=== PATIENT | male | born 1965 | race African-American/Black ===

== ENCOUNTER 2020-05-30 03:14 | Emergency (ER) | payer SELFPAY ==
[~2020-05-30] VITALS: Ht 167.6 cm; Wt 83.0 kg
[2020-05-30 05:00] VITALS: BP 136/79
[2020-05-30] MEDS ORDERED: ONDANSETRON 4MG ODT PO ONE (05:15)
[2020-05-30 05:20] LABS: BASOPHILS % 0.6 % (0.0-2.0); CHLORIDE 100 mEq/L (98-107); EOSINOPHILS % 0.1 % (0.0-5.0); HEMATOCRIT. 48.6 % (42.0-52.0); HEMOGLOBIN. 15.5 g/dL (14.0-18.0); LYMPHOCYTES % 25.7 % (20.0-50.0); MEAN CORPUSCULAR HEMOGLOBIN 25.5 pg (28.0-32.0); MEAN CORPUSCULAR VOLUME 80.1 fL (80.0-94.0); MEAN PLATELET VOLUME 10.5 fl (7.4-10.4); MONOCYTES % 7.4 % (2.0-8.0); NEUTROPHILS % 66.2 % (40.0-76.0); PLATELET 245 x1000/uL (130-400); RED BLOOD CELL COUNT 6.07 mill/uL (4.7-6.1); RED CELL DISTRIBUTION WIDTH 13.7 % (11.6-14.6)
[2020-05-30] MEDS ORDERED: OMEP20CA14 MT (06:25)
[2020-05-30] MEDS ORDERED: ONDA8TAB13 MT (06:26)
== END 2020-05-30 07:30 | disposition home or self-care (01) ==
LOC: ER 03:14
DX: E11.65 Type 2 diabetes mellitus with hyperglycemia (principal); R11.10 Vomiting, unspecified
CPT/HCPCS: 36415; 80048; 85025; 93005; 99284; Q0162